=== PATIENT | male | born 1970 | race Two or more races ===

== ENCOUNTER 2024-11-27 10:01 | Emergency (ER) | payer MEDICAID ==
[~2024-11-27] VITALS: Ht 167.6 cm; Wt 108.0 kg
--- NOTE | 2024-11-27 10:34 | ECG ---
[facility] Test Date: 2024-11-27 Test Time: 10:05:15 Pat Name: EVELYN GAN Department: ED Room: Gender: M [employer]: stiven : 1970 Requested By: JANEEN DRAKE Order Number: [id number] Reading MD: Gavin Montoya Measurements Intervals [place] Rate: 122 P: 0 UT: 0 QRS: 105 QRSD: 88 T: 34 QT: 324 QTc: 462 Interpretive Statements Atrial fibrillation Right axis deviation Low voltage, extremity leads Abnormal R-wave progression, late transition Baseline wander in lead(s) V2 Electronically Signed On 11-27-2024 16:42:13 PDT by Gavin Montoya Please click the below link to view image of tracing.
[2024-11-27] MEDS ORDERED: FUROSEMIDE 20 MG/2 ML VIAL IV ONE (10:45)
[2024-11-27] MEDS ORDERED: dilTIAZem 120MG ER CAP PO ONE (10:45)
--- NOTE | 2024-11-27 10:47 | ED.PDOC ---
HPI Comments This is a 54-year-old male with past medical history of AFib, hypertension, dyslipidemia and prediabetes came to the hospital due to dizziness and lightheadedness. Patient was referred to cardiac stress test (on outpatient basis), upon entering the stress lab (before giving the medication or starting the stress test) he developed sweating, dizziness, nausea, blurry vision and headache. He also reports of cold sweating. He denies chest pain, shortness of breaths, loss of consciousness or motor/sensory deficits. At stress lab, blood pressure was 172/116, EKG showed AFib with RVR subsequently the patient was referred to ER. Upon ER arrival blood pressure was 153/109 and EKGs showed AFib with occasional PVCs. Home meds: Carvedilol 25 mg b.i.d., Lasix 40 mg, atorvastatin 20 mg, Eliquis 5 mg b.i.d., diltiazem 180 mg b.i.d., lisinopril 20 mg, omeprazole, Social history: Ex-smoker Chief Complaint: Dizziness Time Seen by MD: 10:07 Reviewed Notes: Nurses Notes Allergies: Coded Allergies: NO KNOWN ALLERGIES (Unverified , 11/27/24) Information Source: Patient Mode of Arrival: Wheelchair Past Medical History PAST MEDICAL HISTORY: AFIB, DM, High Lipids, HTN Surgical History: Denies all surgeries Constitutional: denies: chills, diaphoresis, fatigue, fever, malaise, sweats, weakness, others EENTM: denies: blurred vision, double vision, ear bleeding, ear discharge, ear drainage, ear pain, ear ringing, eye pain, eye redness, hearing loss, mouth pain, mouth swelling, nasal discharge, nose bleeding, nose congestion, nose pain, photophobia, tearing, throat pain, throat swelling, voice changes, others Respiratory: denies: cough, hemoptysis, orthopnea, SOB at rest, shortness of breath, SOB with excertion, stridor, wheezing, others Cardiovascular: reports: dizzy spells, Dyspnea on exertion; denies: chest pain, diaphoresis, edema, irregular heart beat, left arm pain, lightheadedness, palpitations, PND, syncope, others Gastrointestinal: reports: nausea; denies: abdomen distended, abdominal pain, blood streaked bowels, constipated, diarrhea, dysphagia, difficulty swallowing, hematemesis, melena, poor appetite, poor fluid intake, rectal bleeding, rectal pain, vomiting, others Genitourinary: denies: burning, dysuria, flank pain, frequency, hematuria, incontinence, penile discharge, penile sore, pain, testicle pain, testicle swelling, urgency, others Neurological: reports: dizziness, headache; denies: fainting, left sided numbness, left sided weakness, numbness, paresthesia, pre-existing deficit, right sided numbness, right sided weakness, seizure, speech problems, tingling, tremors, weakness, others Musculoskeletal: reports: back pain; denies: gout, joint pain, joint swelling, muscle pain, muscle stiffness, neck pain, others Integumetry: denies: bruises, change in color, change in hair/nails, dryness, laceration, lesions, lumps, rash, wounds, others Allergic/Immunocompromised: denies: Difficulty Healing, Frequent Infections, Hives, Itching, others Hematologic/Lymphatic: denies: anemia, blood clots, easy bleeding, easy bruising, swollen glands, others Endocrine: denies: excessive hunger, excessive sweating, excessive thirst, excessive urination, flushing, intolerance to cold, intolerance to heat, unexplained weight gain, unexplained weight loss, others Psychiatric: denies: anxiety, bipolar disorder, depression, hopeless, panic disorder, schizophrenia, sleepless, suicidal, others Physical Exam General Appearance: No Apparent Distress, Normal HEENT: Normal ENT Inspection, Pharynx Normal, TMs Normal Neck: Full Range of Motion, Non-Tender, Normal, Normal Inspection Respiratory: Chest Non-Tender, Lungs Clear, No Accessory Muscle Use, No Respiratory Distress, Normal Breath Sounds Cardiovascular: No Edema, No JVD, No Murmur, No Gallop, Normal Peripheral Pulses, Regular Rate/Rhythm Breast Exam: Deferred Gastrointestinal: No Organomegaly, Non Tender, No Pulsatile Mass, Normal Bowel Sounds, Soft Genitalia: Deferred Pelvic: Deferred Rectal: Deferred Extremities: No calf tenderness, Normal capillary refill, Normal inspection, Normal range of motion, Non-tender, No pedal edema Musculoskeletal : Apperance: Normal Neurologic: Alert, scrubber system attendant II-XII nml as Tested, No Motor Deficits, Normal Affect, Normal Mood, No Sensory Deficits Cerebellar Function: Normal Reflexes: Normal Skin: Dry, Normal Color, Warm Lymphatic: No Adenopathy EKG EKG : Comments AFib with a occasional PVC, no significant ST or T-wave changes Was a procedure done? Was a procedure done?: No CP Differential Dx Differential Diagnosis: A-fib, Anxiety / Panic Attack X-Ray, Labs, Meds, VS Vital Signs Date Time Temp Pulse Resp B/P (MAP) Pulse Ox O2 Delivery O2 Flow Rate FiO2 11/27/24 12:05 155/104 11/27/24 12:04 132 155/104 11/27/24 12:04 132 155/104 11/27/24 11:00 112 21 149/101 (117) 91 11/27/24 10:33 98.9 102 18 153/109 99 98.9 11/27/24 10:05 122 Lab Test 11/27/24 11:38 11/27/24 10:40 Range/Units Troponin I High Sensitivity 5 5 </=54 ng/L White Blood Count 7.9 4.4-10.8 10^3/uL Red Blood Count 5.87 4.5-5.90 10^6/uL Hemoglobin 18.1 H 13.5-17.5 g/dL Hematocrit 52.7 41.0-53.0 % Mean Corpuscular Volume 89.7 80.0-100.0 fL Mean Corpuscular Hemoglobin 30.8 28.0-32.0 pg Mean Corpuscular Hemoglobin Concent 34.4 32.0-36.0 g/dL Red Cell Distribution Width 14.1 11.8-14.3 % Platelet Count 258 140-450 10^3/uL Mean Platelet Volume 8.3 6.9-10.8 fL Neutrophils (%) (Auto) 66.0 37.0-80.0 % Lymphocytes (%) (Auto) 23.3 10.0-50.0 % Monocytes (%) (Auto) 7.4 0.0-12.0 % Eosinophils (%) (Auto) 2.7 0.0-7.0 % Basophils (%) (Auto) 0.6 0.0-2.0 % Neutrophils # (Auto) 5.2 1.6-8.6 10 ^3/uL Lymphocytes # (Auto) 1.8 0.4-5.4 10 ^3/uL Monocytes # (Auto) 0.6 0-1.3 10 ^3/uL Eosinophils # (Auto) 0.2 0-0.8 10 ^3/uL Basophils # (Auto) 0 0-0.2 10 ^3/uL Nucleated Red Blood Cells 0.2 % Sodium Level 140 136-145 mmol/L Potassium Level 4.7 3.5-5.1 mmol/L Chloride Level 101 98-107 mmol/L Carbon Dioxide Level 33 H 20-31 mmol/L Anion Gap 6 5-15 Blood Urea Nitrogen 9 9-23 mg/dL Creatinine 0.97 0.700-1.30 mg/dL Glomerular Filtration Rate Calc 92 >90 mL/min BUN/Creatinine Ratio 9.3 L 10.0-20.0 Serum Glucose 108 H 74-106 mg/dL Calcium Level 9.8 8.7-10.4 mg/dL Magnesium Level 1.9 1.6-2.6 mg/dL Total Bilirubin 1.1 H 0.2-1.0 mg/dL Aspartate Amino Transferase (AST) 26 13-40 U/L Alanine Aminotransferase (ALT) 31 7-40 U/L Alkaline Phosphatase 143 H 46-116 U/L Total Protein 7.9 5.7-8.2 g/dL Albumin 4.8 3.2-4.8 g/dL Plasma/Serum Blood Alcohol < 3.0 <10 mg/dL Current Medications Medications (Trade) Dose Ordered Sig/Morgan Route Start Time Stop Time Status Last Admin Aspirin 162 mg ONCE ONCE PO 11/27/24 10:15 11/27/24 11:49 DC 11/27/24 12:04 Lisinopril (Zestril Tablet) 20 mg ONCE ONCE PO 11/27/24 10:45 11/27/24 11:49 DC 11/27/24 12:05 Carvedilol (Coreg Tablet) 25 mg ONCE ONCE PO 11/27/24 10:45 11/27/24 11:49 DC 11/27/24 12:04 Diltiazem HCl (Cardizem LA Capsule) 180 mg ONCE ONCE PO 11/27/24 10:45 11/27/24 11:49 DC 11/27/24 12:04 Time of 1ST Reevaluation: 12:35 Reevaluation 1ST: Resolved Patient Education/Counseling: Diagnosis, Treatment, Prognosis, Need For Follow Up Family Education/Counseling: Diagnosis, Treatment, Prognosis, Need For Follow Up Comments Patient was brought from stress/due to dizziness Upon ER arrival, patient's blood pressure was 1 50s, and patient's home medication were given. EKGs showed AFib with RVR. CBC, and CMP checked within normal limits Serial trop I within normal limits On subsequent checkup, patient was feeling better and had no dizziness or headache. Patient discharged home Follow up with the PCP and Cardiology. SEPSIS Sepsis Screen Date sepsis recognized/suspect: Nov 27, 2024 Time Sepsis recognized/suspect: 1009 Recent Procedure: No On Antibiotic Therapy: No Respiratory Rate >20: No Heart Rate >90: No Temp<36 C (96.8 F) or >38.3 C: No SBP <90 or MAP <65 mmHG: No New Acute Mental Status Change: No Is the patient on CPAP, BIPAP,: No Physician Orders Drug Screen (11/27/24 10:10) Troponin-I Hs (11/27/24 13:10) Electrocardigram (11/27/24 11:10) Electrocardigram (11/27/24 13:10) Apixaban (Eliquis) (11/27/24 22:00) Vital Signs Date Time Temp Pulse Resp B/P (MAP) Pulse Ox O2 Delivery O2 Flow Rate FiO2 11/27/24 12:05 155/104 11/27/24 12:04 132 155/104 11/27/24 12:04 132 155/104 11/27/24 11:00 112 21 149/101 (117) 91 11/27/24 10:33 98.9 102 18 153/109 99 98.9 11/27/24 10:05 122 Laboratory Tests Test 11/27/24 10:40 White Blood Count 7.9 10^3/uL (4.4-10.8) Medications Medications Dose Ordered Sig/Morgan Route Start Time Stop Time Status Last Admin Dose Admin Aspirin 162 mg ONCE ONCE PO 11/27/24 10:15 11/27/24 11:49 DC 11/27/24 12:04 Carvedilol 25 mg ONCE ONCE PO 11/27/24 10:45 11/27/24 11:49 DC 11/27/24 12:04 Diltiazem HCl 180 mg ONCE ONCE PO 11/27/24 10:45 11/27/24 11:49 DC 11/27/24 12:04 Lisinopril 20 mg ONCE ONCE PO 11/27/24 10:45 11/27/24 11:49 DC 11/27/24 12:05 Departure 1 Departure Time of Disposition: 12:37 Impression: Primary Impression: Vasovagal episode Disposition: 01 HOME / SELF CARE / HOMELESS Condition: Good Critical Care Note Critical Care Time?: Yes (45 min-critical care time only) Stability Stability form required: No Heart Score Heart Score: Heart Score Response (Comments) Value History Slightly Suspicious 0 EKG Normal 0 Age 45-64 1 Risk Factors >3 or Hx ASHD 2 Troponin Normal limit 0 Total 3 JANEEN DRAKE RESDIENT Nov 27, 2024 10:47
[2024-11-27 10:53] LABS: Hematocrit 52.7 % (41.0-53.0); Hemoglobin 18.1 g/dL (13.5-17.5); Mean Corpuscular Hemoglobin 30.8 pg (28.0-32.0); Mean Corpuscular Volume 89.7 fL (80.0-100.0); Nucleated Red Blood Cells % 0.2 %
[2024-11-27 10:55] VITALS: PULSE 102; RESP 21; O2SAT 93
[2024-11-27 11:08] LABS: Alanine Aminotransferase 31 U/L (7-40); Anion Gap 6 (5-15); BUN/Creatinine Ratio 9.3 (10.0-20.0); Bilirubin, Total 1.1 mg/dL (0.2-1.0); Calcium 9.8 mg/dL (8.7-10.4); Chloride 101 mmol/L (98-107); Magnesium 1.9 mg/dL (1.6-2.6); Potassium 4.7 mmol/L (3.5-5.1); Sodium 140 mmol/L (136-145); Total Protein 7.9 g/dL (5.7-8.2)
[2024-11-27 11:11] LABS: Albumin 4.8 g/dL (3.2-4.8); Alkaline Phosphatase 143 U/L (46-116); Blood Urea Nitrogen 9 mg/dL (9-23); Carbon Dioxide 33 mmol/L (20-31); Glucose 108 mg/dL (74-106)
[2024-11-27] MEDS: CARVEDILOL 12.5 MG TAB PO ONE (12:04)
[2024-11-27] MEDS: LISINOPRIL 20 MG TAB PO ONE (12:05)
[2024-11-27] MEDS: ATORVASTATIN 20 MG TAB PO ONE (12:42)
[2024-11-27] MEDS: FUROSEMIDE 20 MG TAB PO ONE (12:43)
[2024-11-27 13:00] VITALS: BP 159/105; PULSE 106; RESP 16; TEMP 98.4; O2SAT 95
[2024-11-27] MEDS ORDERED: APIXABAN 5 MG TAB PO SCH (22:00)
== END 2024-11-27 13:05 | disposition home or self-care (01) ==
LOC: ER 10:01
DX: R55 Syncope and collapse (principal); E11.9 Type 2 diabetes mellitus without complications; E78.5 Hyperlipidemia, unspecified; I10 Essential (primary) hypertension; I48.91 Unspecified atrial fibrillation
CPT/HCPCS: 36415; 80053; 80320; 83735; 84484; 85025; 93005

== ENCOUNTER → 2025-01-20 | Outpatient (CLI) | payer MEDICAID ==
[~2025-01-20] VITALS: Ht 167.6 cm; Wt 108.4 kg
[2025-01-20] MEDS: REGADENOSON 0.4 MG/5 ML SYRG IV ONE ×2 (08:38)
--- NOTE | 2025-01-20 11:51 | DVHSR ---
APPROVED REPORT Exam: Nuclear Stress Test BMI: 0 Stress Test Details HR Max Heart Rate (APMHR): 164.416045 bpm Target HR (85% APMHR): 139.506054 bpm BP ECG Stress ECG Conclusion lvef 57% normal perfsusion inferior wall artifact NM EXAM: Myocardial Perfusion REST/STRESS Imaging Protocol: Rest Tc-99m/Stress Tc-99m 1 day Resting Data Rest SPECT myocardial perfusion imaging was performed in supine position 45 minutes following the intravenous injection of 10.2 mCi of Tc-99m Sestamibi. Time of rest injection: 07:35 Date: 01/20/2025 Time of rest imagin:20 Date: 01/20/2025 Administration Route: IV Administration Site: Right Arm Pharmacologic Stress Pharmacologic stress test was performed by injecting Regadenoson 0.4 mg IV push followed by the intravenous injection of 30.1 mCi of Tc-99m Sestamibi. Time of stress injection: 08:25 Date: 01/20/2025 Time of stress imagin:25 Date: 01/20/2025 Administration Route: IV Administration Site: Right Arm Gated Stress SPECT was performed 60 minutes after stress injection. The images were gated to evaluate regional wall motion and calculate left ventricular ejection fraction. Stress only was performed in the Supine position. Nuclear Conclusion Nuclear Findings: negative for ischemia lvef 57% normal perfsusion inferior wall artifact
== END | disposition home or self-care (01) ==
LOC: XYW 06:45
PROVIDERS: ATTEND Specialist
DX: I10 Essential (primary) hypertension (principal); I48.91 Unspecified atrial fibrillation; E78.5 Hyperlipidemia, unspecified
CPT/HCPCS: 78452; 93017; A9500; J2785